=== PATIENT | female | born 1955 | race Caucasian/White ===

== ENCOUNTER 2018-11-19 00:54 | Outpatient (CLI) | payer OTHER, SELFPAY ==
--- NOTE | 2018-11-19 15:55 | DI.MAMMO_ITS ---
SYMPTOM/DIAGNOSIS: SCREENING, Z12.31 MAMMOGRAMS: Mammograms were interpreted according to the usual protocol including computer analysis with CAD system, tomosynthesis and C view imaging. Comparison is made with exams from 2010 and 2015. The breasts are composed of scattered fibroglandular densities, breast density, Category B. No suspicious masses or suspicious microcalcifications are seen. There has been no significant change. IMPRESSION: Category 1, negative mammogram. Yearly screening mammography is recommended. [facility] ASSESSMENT OF FINDINGS: Negative. Category 1. Patient will receive a letter notifying them of these results. BI-RADS category B. There are scattered areas of fibroglandular density.
== END 2018-11-19 01:14 ==
PROVIDERS: PCP Family Medicine; Visit Provider Family Medicine
DX: Z12.31 Encounter for screening mammogram for malignant neoplasm of breast (principal)
CPT/HCPCS: 77063; 77067

== ENCOUNTER 2018-11-22 22:16 | Outpatient (REF) | payer OTHER, SELFPAY ==
[2018-11-22 21:40] LABS: Hemoglobin A1C 5.7 % (4.5-6.2)
[2018-11-22 21:43] LABS: Cholesterol 157 mg/dL (50-200); HDL Cholesterol 55 mg/dL (40-60); LDL CHOLESTEROL 88 mg/dL (<100); Triglyceride 70 mg/dL (30-150)
== END 2018-11-22 22:36 ==
LOC: NCHCN 22:16
PROVIDERS: PCP Family Medicine; Visit Provider Family Medicine
DX: Z00.00 Encounter for general adult medical examination without abnormal findings (principal)
CPT/HCPCS: 80061; 83721; 83036

== ENCOUNTER 2021-10-17 10:36 | Outpatient (REF) | payer BC, SELFPAY ==
--- NOTE | 2021-10-17 09:30 | PAPFT_PTH ---
PATIENT: Jessika Petit LOC: NCN #:[id number] AGE/SX: 65/F ROOM: RE10/17/[address]: Kelsy Whelan : 1955 BED: DIS: 10/17/2021 SPEC #: [id number] RECD: 10/17/21 17:42 STATUS: SABINO SCHAFFER #: [id number] DUDLEY: 10/17/21 09:[address]: Kelsy Whelan DEPT: [facility] Cytology RECD BY: Ariana Sim Tissues: 1 - CX/ENDOCX FOR PAP SMEARS Procedures: PAP THIN PREP/[facility] Screening HPV DNA PROBE Comments: [id number]
== END 2021-10-17 10:37 | disposition home or self-care (01) ==
LOC: NCHCN 10:36
PROVIDERS: PCP Family Medicine; Visit Provider Family Medicine
DX: Z12.4 Encounter for screening for malignant neoplasm of cervix (principal); Z11.51 Encounter for screening for human papillomavirus (HPV)
CPT/HCPCS: 88142; 87624

== ENCOUNTER 2021-10-27 03:50 | Outpatient (CLI) | payer BC, SELFPAY ==
--- NOTE | 2021-10-27 | DI.CTLCSR_ITS ---
Exam(s) CT CHEST LUNG CANCER SCREEN EXAM: CT CHEST LUNG CANCER SCREEN CLINICAL HISTORY: SCREENING FOR LUNG CANCER, FORMER SMOKER Z87.891 TECHNIQUE: Imaging Protocol: Axial computed tomography images with coronal and sagittal reformatted images were created and reviewed COMPARISON: No exams were available for comparison FINDINGS: Tracheobronchial tree: Patent where visualized. Mediastinum and Casandra: No dominant adenopathy or fluid collection. Pulmonary parenchyma: No consolidation or dominant measurable mass. Mild emphysematous changes.. Lung Nodules: None. Pleura: No effusion or pneumothorax. Heart: The heart is not dilated. mild coronary artery calcifications are seen. Aorta: Thoracic aorta non-dilated.Mild atherosclerotic changes. Upper abdomen: Unremarkable. Bones: Mild degenerative changes. Soft Tissues: Unremarkable. IMPRESSION: No pulmonary nodules identified. Lung RADS Cat 1 - Negative: No nodules and definitely benign nodules Lung-RADS 1.0 CATEGORIES: Category 0 - Prior chest CT exam(s) being located for comparison. Category 1 - Annual screening in 12 months. No nodules or definitely benign nodules. Category 2 - Annual screening in 12 months. Benign appearance. Nodules with low likelihood of becomin g active cancer. Category 3 - 6-month follow-up. Probably benign. Short-term follow-up suggested. Nodules with low lik elihood of becoming active cancer. Category 4A - 3-month follow-up and CT/PET if >8 mm in size. Suspicious finding. Findings which requi re additional testing. Category 4B - Findings which require additional testing and tissue sampling. Category 4X - Category 3 or 4 nodules with additional features or imaging findings that increases the suspicion of malignancy. Modifier S- Potentially clinically significant findings (non lung cancer) RADIATION DOSE DELIVERED: 75.57mGy.cm Total DLP 1.84mGy CTDIvol DATA REPOSITORY: All CT scans at this facility are submitted to the National Radiology Data Registry (NRDR) Dose Index Registry (DIR) with the [employer] (ACR). RADIATION OPTIMIZATION: All CT scans at this facility use at least one of these dose optimization te chniques: automated exposure control; mA and/or kV adjustment per patient size (includes targeted exa ms where dose is matched to clinical indication); or iterative reconstruction.
--- NOTE | 2021-10-27 | DI.MAMMO_ITS ---
Exam(s) MAMMO SCREENING EXAM: MAMMO SCREENING CLINICAL HISTORY: SCREENING FOR BREAST CANCER Z12.31 TECHNIQUE: Mammograms were interpreted according to the usual protocol including computer analysis w [employer] CAD system, tomosynthesis and C-view imaging. COMPARISON: 2014 and 2018 FINDINGS: The breasts are composed of scattered fibroglandular densities, Breast Density category B. No suspicious masses or suspicious microcalcifications are seen. No skin thickening or abnormal axillary lymph nodes are seen. There has been no significant change from prior exams. IMPRESSION: BI-RADS Category 1, Negative mammogram Yearly screening mammography is recommended. Breast Density - Category B, scattered fibroglandular densities. A negative radiographic report should not delay biopsy if a dominant or clinically suspicious mass is present. Up to ten percent of cancers are not identified on mammography. A negative report may reinforce clinical impression. Adenosis and dense breasts may obscure an underlying neoplasm. False positive reports average 6 to 10%. Patient will receive a letter notifying them of these results.
== END 2021-10-27 04:10 ==
PROVIDERS: PCP Family Medicine; Visit Provider Family Medicine
DX: Z12.31 Encounter for screening mammogram for malignant neoplasm of breast (principal); Z12.2 Encounter for screening for malignant neoplasm of respiratory organs; Z87.891 Personal history of nicotine dependence
CPT/HCPCS: 71271; 77063; 77067

== ENCOUNTER 2021-11-11 00:47 | Outpatient (CLI) | payer BC, SELFPAY ==
--- NOTE | 2021-11-11 | DI.DEXA_ITS ---
Exam(s) XR DEXA BONE DENSITY W/WO ANMOL EXAM: XR DEXA BONE DENSITY W/WO ANMOL CLINICAL HISTORY: OSTEOPENIA, M85.80,H/O HEALED OSTEOPOROTIC FX,Z87.310 TECHNIQUE: COMPARISON: No exams were available for comparison FINDINGS: DEXA scan was performed according to the usual protocol. Please see the accompanying data sheets. Left hip scanning shows T-score -1.6 with left femoral neck T-score -2.0. Prior examination of 2009 showed left hip T-score -1.0. Lumbar spine scanning shows T-score -2.5. Prior examination of 15/06 showed lumbar T-score -1.6. Left forearm scanning shows T-score -1.9. Prior examination showed T-score -0.2. IMPRESSION: Measurements are consistent with osteoporosis according to the WHO criteria. The lateral vertebral s canogram shows no evidence of a vertebral compression fracture. RADIATION DOSE DELIVERED: Total DLP
== END 2021-11-11 01:07 ==
PROVIDERS: PCP Family Medicine; Visit Provider Family Medicine
DX: Z13.820 Encounter for screening for osteoporosis (principal); M81.0 Age-related osteoporosis without current pathological fracture; Z87.310 Personal history of (healed) osteoporosis fracture
CPT/HCPCS: 77080

== ENCOUNTER 2023-02-20 18:29 | Outpatient (REF) | payer MEDICARE, SELFPAY ==
[2023-02-20 22:06] LABS: Abs Immature Grans 0.01 10^3/uL (0.0-0.06); Absolute Basophil Count 0.05 10^3/uL (0.0-0.2); Absolute Eosinophil Count 0.15 10^3/uL (0.0-0.7); Absolute Lymphocyte Count 2.44 10^3/uL (1.2-3.4); Absolute Monocyte Count 0.64 10^3/uL (0.1-0.8); Absolute Neutrophil Count 4.49 10^3/uL (1.2-6.7); Basophils % 0.6; Eosinophils % 1.9; HCT 43.2 % (36.0-46.0); HGB 14.8 g/dL (11.2-15.7); Immature Grans % 0.1; Lymphocytes % 31.4; MCH 33.7 pg (27.0-33.0); MCHC 34.3 % (32.0-36.0); MCV 98 fL (80-95); MPV 9.2 fL (8.0-11.0); Monocytes % 8.2; Neutrophils % 57.8; Platelet Count 425 10^3/uL (130-400); RBC 4.39 10^6/uL (3.93-5.22); RDW 11.8 % (11.7-14.6); RDW-SD 43.1 fL; WBC 7.78 10^3/uL (4.4-10.8)
[2023-02-20 22:21] LABS: ALT 31 U/L (14-59); AST 20 U/L (15-37); Albumin 4.3 g/dL (3.4-5.0); Alkaline Phosphatase 51 U/L (46-116); Anion Gap 10.6 mmol/L (3-11); BUN 18 mg/dL (7-18); Bilirubin, Total 0.5 mg/dL (0.2-1.0); CO2 29.4 mmol/L (21.0-32.0); CREATININE 0.8 mg/dL (0.55-1.02); Calcium 9.5 mg/dL (8.5-10.1); Chloride 101 mmol/L (98-107); Estimated GFR 81.72 (mL/min/1.73m2); Glucose 97 mg/dL (74-106); Lipase 38 U/L (16-77); Potassium 4.1 mmol/L (3.5-5.1); Sodium 141 mmol/L (136-145); Total Protein 7.2 g/dL (6.4-8.2)
== END 2023-02-20 18:30 | disposition home or self-care (01) ==
LOC: LBN 18:29
PROVIDERS: PCP Family Medicine; Visit Provider Physician Assistant Medical
DX: R10.9 Unspecified abdominal pain (principal)
CPT/HCPCS: 80053; 83690; 85025

== ENCOUNTER 2023-02-22 03:16 | Outpatient (CLI) | payer MEDICARE, SELFPAY ==
--- NOTE | 2023-02-22 | DI.US_ITS ---
Exam(s) US PELVIS TRANSVAGINAL EXAM: US PELVIS TRANSVAGINAL CLINICAL HISTORY: ABNL VAGINAL BLEEDING,N93.9,PAIN INTO LT FLANK TECHNIQUE: Transabdominal and transvaginal imaging was performed using standard protocol. COMPARISON: No exams were available for comparison FINDINGS: A transabdominal images are limited by lack of bladder distention. UTERUS: Retroverted. 4.9 x 2.3 x 3.2 cm Endometrium: Single wall thickness of 1.3 millimeters. No focal abnormality seen. Fluid noted withi n the endometrial cavity, 4 millimeters in thickness. Myometrium: Unremarkable. No fibroids. Cervix: Unremarkable. OVARIES: Right: Normal size. Cyst or mass: None. Left: Not visualized. CUL-DE-SAC: Free fluid: None. IMPRESSION: Fluid within the endometrial canal. The endometrial wall thickness is within normal limits at 1.3 mi llimeters. Left ovary not visualized. DATA REPOSITORY:
[2023-02-22] MEDS: Omnipaque 350 MG/ML 100 ML BTL IJ (11:57)
[2023-02-22] MEDS: Normal Saline - Diluent 50 ML VIAL IJ (11:58)
--- NOTE | 2023-02-22 12:00 | DI.CT_ITS ---
Exam(s) CT ABDOMEN PELVIS W EXAM: CT ABDOMEN PELVIS W CLINICAL HISTORY: ABNL VAGINAL BLEEDING,LUQ PAIN INTO FLANK,R10.9,ABD PAIN. TECHNIQUE: Imaging Protocol: Axial computed tomography images with coronal and sagittal reformatted images were created and reviewed CONTRAST MATERIAL: Intravenous: Omnipaque 350 Contrast volume:100 ml Oral: yes / COMPARISON: No exams were available for comparison FINDINGS: ABDOMEN: Lung Bases: Normal where visualized. Liver: Normal density. No measurable mass. Gallbladder and biliary tract: No radiodense calculus or dilation. Pancreas: Normal density, no abnormal calcifications or inflammatory process. Spleen: Normal. Kidneys: Normal size, contour and axis. No radiodense stones or obstructive uropathy. No suspicious m asses seen. Adrenal glands: No masses seen. Abdominal Aorta: Abdominal portion non-dilated. Soft tissues: Unremarkable. PELVIS: Bladder: No gross wall thickening. No calculi.No focal mass. Bowel: Redundant colon with large quantity of stool noted from cecum through descending portions. Li ttle stool distally. No obstruction. No bowel wall thickening. Appendix normal. Peritoneal cavity: No ascites, collection or mesenteric inflammatory response. Bones: Unremarkable for age. Reproductive organs: Within normal limits. Uterus retroverted. No pelvic masses. Lymph nodes: Unremarkable. Impression: Large quantity of stool. No acute abnormality. RADIATION DOSE DELIVERED: 634.12mGy.cm Total DLP DATA REPOSITORY: All CT scans at this facility are submitted to the National Radiology Data Registry (NRDR) Dose Index Registry (DIR) with the [employer] (ACR). RADIATION OPTIMIZATION: All CT scans at this facility use at least one of these dose optimization te chniques: automated exposure control; mA and/or kV adjustment per patient size (includes targeted exa ms where dose is matched to clinical indication); or iterative reconstruction.
== END 2023-02-22 03:36 ==
PROVIDERS: PCP Family Medicine; Visit Provider Physician Assistant Medical
DX: R10.9 Unspecified abdominal pain (principal); K59.00 Constipation, unspecified; N85.8 Other specified noninflammatory disorders of uterus
CPT/HCPCS: 74177; 76830; 76856; J3490

== ENCOUNTER 2023-10-24 15:00 | Outpatient (REF) | payer MEDICARE, SELFPAY ==
[2023-10-24 22:29] LABS: Calculated LDL 65 mg/dL (<100); Cholesterol 156 mg/dL (<200); HDL Cholesterol 65 mg/dL (40-60); Triglyceride 133 mg/dL (<150)
[2023-10-24 22:36] LABS: Hemoglobin A1C 5.5 % (<5.7)
== END 2023-10-24 15:01 | disposition home or self-care (01) ==
LOC: NCHCN 15:00
PROVIDERS: PCP Family Medicine; Visit Provider Family Medicine
DX: Z13.220 Encounter for screening for lipoid disorders (principal); R73.03 Prediabetes
CPT/HCPCS: 80061; 83036

== ENCOUNTER → 2023-11-15 04:46 | Outpatient (CLI) | payer MEDICARE, SELFPAY ==
--- NOTE | 2023-11-15 15:15 | DI.MAMMO_ITS ---
Exam(s) MAMMO SCREENING EXAM: MAMMO SCREENING CLINICAL HISTORY: SCREENING, Z12.31 TECHNIQUE: Mammograms were interpreted according to the usual protocol including computer analysis w [employer] CAD system, tomosynthesis and C-view imaging. COMPARISON: [id number] FINDINGS: The breasts are composed of scattered fibroglandular densities, Breast Density category B. No suspicious masses or suspicious microcalcifications are seen. No skin thickening or abnormal axillary lymph nodes are seen. There has been no significant change from prior exams. IMPRESSION: BI-RADS Category 1, Negative mammogram Yearly screening mammography is recommended. Breast Density - Category B, scattered fibroglandular densities. A negative radiographic report should not delay biopsy if a dominant or clinically suspicious mass is present. Up to ten percent of cancers are not identified on mammography. A negative report may reinforce clinical impression. Adenosis and dense breasts may obscure an underlying neoplasm. False positive reports average 6 to 10%. Patient will receive a letter notifying them of these results.
== END ==
PROVIDERS: PCP Family Medicine; Visit Provider Family Medicine
DX: Z12.31 Encounter for screening mammogram for malignant neoplasm of breast (principal)
CPT/HCPCS: 77063; 77067

== ENCOUNTER 2024-07-25 11:25 | Emergency (ER) | payer MEDICARE, SELFPAY ==
[2024-07-25 11:28] VITALS: BP 118/77; PULSE 63; RESP 16; TEMP 36.4; O2SAT 97
[2024-07-25 11:31] VITALS: BP 118/77; PULSE 63; RESP 16; TEMP 36.4; O2SAT 97
[2024-07-25] MEDS: Fluorescein STRIPS 100/BOX 1 MG OP (11:41)
[2024-07-25] MEDS: Tetracaine 0.5% 4 ML BTL OP (11:41)
[2024-07-25] MEDS: Balanced Salt Solution 15 ML BTL OP (11:42)
--- NOTE | 2024-07-25 11:42 | W.ED.GENAD ---
Discharge Plan Disposition Patient Disposition: Home Condition: Stable Discharge Details Clinical Impression: Foreign body of eye, external, left Primary Care Provider: Kelsy Whelan ED Provider: Juana Pacheco Home Meds and New Rx's Prescriptions: No Action No Known Home Meds Discharge Instructions Instructions: Foreign Body in Eye ED Additional Instructions: No evidence for retained foreign body or something in your eye on exam. No evidence for corneal abrasion. I do believe what ever was in there we may have removed it with the irrigation. You may continue to use the saline irrigation if needed over the next 2 to 3 days. Otherwise continue on his normal. May follow-up with [facility] eye care if continued pain or irritation. Thank you for allowing us to care for you today Referrals: [facility] [Outside] - Return if symptoms worsen Kelsy Whelan [Primary Care Provider] - Return if symptoms worsen HPI General Mode of arrival: ambulatory. Date/Time Provider Initiated Documentation: 07/25/24 11:28. Limitations to Documentation: no limitations. Information obtained by: patient, RN notes reviewed and old records reviewed. HPI Narrative: 68-year-old female presents to the ER with a chief complaint of possible foreign body to her left eye. She reports that she woke up and fell like there is something in her left eye was stabbing her. She reports that over the last 40 minutes the discomfort has decreased but still feels like there is something in there. No visual foreign body noted. No other associated symptoms or concerns denies any visual disturbances or headache. Related Data Home Medications ?Medication ?Instructions ?Recorded ?Confirmed Unknown [No Known Home Meds] 03/16/23 07/25/24 Allergies Allergy/AdvReac Type Severity Reaction Status Date / Time penicillin V Allergy Skin Rash Verified 07/25/24 11:30 General Stated Complaint: EyeProblem MERCEDEZ: 4 Review of Systems Constitutional Constitutional: Denies headache(s) Eyes Eyes: Reports as per HPI, Reports irritation and Reports eye pain ENT Ears, Nose, Mouth, and Throat: Denies headache(s) Neurologic Neurologic: Denies headache(s) Exam Const General: cooperative, healthy appearing, comfortable, well developed and well groomed Nutritional Appearance: average body habitus Orientation: alert, awake and oriented x3 Eyes General: appearance normal, both eyes and all related structures Alignment and Position: alignment normal Periorbital: periorbital findings normal Eyelids: eyelids normal Conjunctivae: conjunctivae normal Sclera: sclerae normal Cornea: corneas normal and fluorescein used Pupils: PERRL and normal by confrontation EOM: EOM intact bilaterally Course Vital Signs Vital signs: Vital Signs Temperature 36.4 C L 07/25/24 11:28 Pulse 63 07/25/24 11:28 Respiratory Rate 16 07/25/24 11:28 Blood Pressure 118/77 07/25/24 11:28 Pulse Oximetry 97 07/25/24 11:28 Temperature 36.4 C L 07/25/24 11:31 Temperature Source Oral 07/25/24 11:31 Pulse 63 07/25/24 11:31 Respiratory Rate 16 07/25/24 11:31 Respiratory Effort Normal, Non-Labored 07/25/24 11:31 Blood Pressure 118/77 07/25/24 11:31 Blood Pressure Position Sitting 07/25/24 11:31 Pulse Oximetry 97 07/25/24 11:31 Oxygen Delivery Method Room Air 07/25/24 11:31 Oxygen Flow Rate 0 07/25/24 11:31 Medical Decision Making Sahu lamp exam performed with fluorescein and tetracaine eyedrops, no visualized foreign body noted no uptake and dye no corneal abrasion. I did rinse out with saline solution. Patient reports improvement of her discomfort and she reports that her eye feels much better. There was a small eyelash noted after rinsing. This could have been the possible culprit. Discussed home care follow-up care and strict return instructions she verbalized understanding. This text was generated using [employer] dictation system, please disregard any oddities of phrase or misspellings. Quality:SDOH Health Related Social Needs: No Data to Display PFSH All Active Problems (Updated 07/25/24 @ 11:46 by Juana Pacheco NP) Foreign body of eye, external, left (Acute) Sensorineural hearing loss (SNHL) of both ears (Acute) Medical History Anxiety Bursitis of left hip Surgical History History of arthroscopic surgery of shoulder Family History Mother , d.47 Brain tumor Social History Smoking/Tobacco Use Status: Former Tobacco Use Second Hand Exposure: No Smoking risk assessment performed?: Yes Alcohol Intake: never Drug use: Never Substance use type: former substance user Female Reproductive History Menstrual control method: none History History 2 Para 2 Hx # Term Pregnancies Multiple births Hx # Pregnancies Ectopic pregnancies AB induced Hx Number of Living Children AB spontaneous Past Pregnancies Del. Date GA/Weeks # Preg Succ Route Wgt Sex Labor Lgth Anesthesia Location Prov Complic 04/30/80 Yes vaginal 2806.603 g Female [place] 10/22/81 Yes vaginal 3430.292 g Female [place] Delivery Date: 04/30/80 Last Updated by: Flakita Key Delivery Date: 10/22/81 Last Updated by: Flakita Wolfe
== END 2024-07-25 11:59 | disposition home or self-care (01) ==
LOC: ER 11:53
PROVIDERS: Emergency Provider Registered Nurse Emergency; PCP Family Medicine
DX: T15.02XA Foreign body in cornea, left eye, initial encounter (principal); Z87.891 Personal history of nicotine dependence; X58.XXXA Exposure to other specified factors, initial encounter
CPT/HCPCS: 99283